=== PATIENT | female | born 1945 ===

== ENCOUNTER 2017-07-05 07:15 | Observation (INO) | payer MEDICARE ==
[2017-07-05] MEDS ORDERED: Propofol 10 mg/ml Inj (20 ML) ONE (09:38)
[2017-07-05] MEDS ORDERED: cefOXitin IV 1 gm in Dextrose 1 GM/50 ML BAG IVPB ONE (09:38)
[2017-07-05] MEDS ORDERED: Midazolam 2 MG/2 ML VIAL ONE (09:38)
[2017-07-05] MEDS ORDERED: Vasopressin 20 Units/ml Inj ONE (09:51)
[2017-07-05] MEDS ORDERED: Sodium Chloride 0.9% 60 ML IV ONE (09:53)
[2017-07-05] MEDS ORDERED: Clindamycin 2% Vaginal Cream(40 gm) ONE (10:25)
[2017-07-05] MEDS ORDERED: Rocuronium 10 mg/ml (5 ml) ONE (10:47)
[2017-07-05] MEDS ORDERED: Succinylcholine Chloride 20 mg/ml Syr (5 ml) IV ONE (10:50)
[2017-07-05] MEDS ORDERED: Neostigmine Methylsulfate 3mg/3ml Syringe IV ONE (11:42)
[2017-07-05] MEDS ORDERED: cefOXitin IV 1 gm in Dextrose 1 GM/50 ML BAG IVPB SCH (11:45)
--- NOTE | 2017-07-05 11:51 | PCM.SURG1 ---
Surgeon's Initial Post Op Note - Surgeon's Notes Surgeon: Dr. Daniel Angledozer Operator: Dr. Giron Type of Anesthesia: General Endo Pre-Operative Diagnosis: pelvic organ prolapse Operative Findings: Uterine prolapse, cystocele, rectocele Post-Operative Diagnosis: same Operation Performed: Vaginal hysterectomy, anterior/posterior repair, cystoscopy Specimen/Specimens Removed: Uterus, cervix Estimated Blood Loss: EBL {In ML}: 50 Blood Products Given: N/A Drains Used: No Drains Post-Op Condition: Good Date of Surgery/Procedure: 07/05/17 Time of Surgery/Procedure: 10:00
[2017-07-05] MEDS: HYDROmorphone 0.5 mg/0.5 ml ISec IVP PRN ×3 (11:55→12:29)
[2017-07-05] MEDS ORDERED: Sodium Chloride 0.9% 1,000 ML IV SCH (12:45)
[2017-07-05] MEDS: cefOXitin IV 1 gm in Dextrose 1 GM/50 ML BAG IVPB SCH (17:59)
[2017-07-05] MEDS ORDERED: Oxytocin 20 units in LR 2,000 ML IV ONE (18:53)
[2017-07-05] MEDS ORDERED: Oxytocin 10 Units/ml Inj ONE (18:54)
--- NOTE | 2017-07-06 01:56 | OP ---
PROCEDURE DATE: 07/05/2017 PREOPERATIVE DIAGNOSES: A 72-year-old female with uterine prolapse, cystocele grade 3, and rectocele grade 2. POSTOPERATIVE DIAGNOSIS: A 72-year-old female with uterine prolapse, cystocele grade 3, and rectocele grade 2. PROCEDURE: Vaginal hysterectomy as well as an anterior posterior repair and cystoscopy. SURGEON: Gely Daniel MD VETERIN[employer] MEDICINE TEACHER: Winter Giron MD TYPE OF ANESTHESIA: General endotracheal tubing. COMPLICATIONS: None. ESTIMATED BLOOD LOSS: 50 mL. URINE OUTPUT: 200 mL with clear urine at the end of the procedure. FLUIDS: 500 mL. DESCRIPTION OF PROCEDURE: Examination under anesthesia revealed that she had a small anteverted uterus which was uterine prolapse grade of 3. The uterus was approximately 7 x 6 cm, elongated in shape. The risk, benefit, indication, and alternatives of the procedure were reviewed with the patient and inform consent was obtained. The patient was informed that the risk factors including an infection, bleeding, damage to the surrounding organs and tissues, reoccurrence of cystocele, rectocele, stress incontinence and urge. Once all questions were answered, once the consent was obtained, she was then taken to the operating room, prepped and draped in normal sterile fashion, placed in a dorsal lithotomy position. A weighted speculum was placed into the vagina. The cervix was then grasped with a single-toothed tenaculum. The cervix was then injected with vasopressin and the cervix was circumferential, incised with the scalpel and the bladder dissected off the pubic vesicocervical fascia anterior with a sponge stick and Metzenbaum scissors. The anterior cul-de-sac was then entered sharply and the same procedure was then performed posteriorly and the posterior cul-de-sac was then entered sharply without any difficulty. At this point, the Naa clamps were then placed over the ureteral sacral ligament on either side, it was then transected, suture ligated with 3-0 Vicryl. Hemostasis was then assured. The caudal ligament was then clamped on both sides, transected and suture ligated in a similar fashion. The uterine arteries and the broad ligaments were then clearly clamped with Sherrie clamps, transected, and suture ligated on both sides. Excellent hemostasis was visualized. Both was then clamped with Sherrie clamps, transected, and uterus is delivered. These pedicles were then suture ligated with excellent hemostasis. The peritoneum was then closed with purse-string sutures of 0 Vicryl, the vaginal cuff angles were then closed with [id number] stitch of 0 Vicryl on both sides and transected to the ipsilateral corner and uterosacral ligaments. The remainder of the vaginal cuff was then enclosed with [id number] using 0 Vicryl . Once the vaginal cuff was then closed, attention was then turned to the cystocele repair which she basically have, which was grade 3, so vasopressin was infiltrated under the anterior vaginal mucosa midline and small incision was made in the vaginal mucosa and the Metzenbaum scissors was then used to dissect the mucosa of the cystocele and cut the vaginal mucosa in the midline. The cut edges were then clamped with a T-clamp. The bladder was dissected away along the lateral edges with a combination of sharp and blunt dissection, exposing the vesicovaginal space with series of 2-0 Vicryl interrupted sutures then placed subsequently along the lateral fold in a vesicovaginal space and brought together to the trunk to the bladder back while simultaneously bringing the lateral vaginal tissue together. The excessive vaginal mucosa was then trimmed and the vagina was then closed with running locked 0 Vicryl. The Holliday catheter was removed and a 70-degree scope was inserted into the bladder. The bladder was then intact and normal looking with no evidence of trauma or perforation, bilateral ureteral jets were then visualized . The bladder was then drained to the sheath of the cystoscopy and then the cystoscopy was removed. In a particular instance, attention was then turned to the posterior repair where diluted vasopressin was given under the posterior vaginal mucosa, midline, and into the peritoneal body. A triangular incision was then cut in the perineum. The posterior vaginal wall was then opened vertically and midline upto the apex of the rectal field, the cut edges were held separately laterally with series of T-clamps. The opened vaginal mucosa was dissected laterally with the combination of sharp and blunt dissection exposing the perirectal fascia. The perirectal fascia was then reapproximated with 2-0 Vicryl to draw the lateral folds together and pack the rectocele back to its normal anatomical place. Deep interrupted sutures of 0 Vicryl was then used to reapproximate the fibers of levator ani muscle. The excessive vaginal mucosa was then trimmed and the posterior vaginal wall was then closed and a running locked 0 Vicryl to the hymen tag. The superficial peritoneal muscles were then closed with unlocked 0 Vicryl and the peritoneal skin was then closed with running subcu 2-0 Vicryl. In that particular instance, it was then noted that rectal exams were repeated throughout the repair and at the end to ensure that they were no sutures penetrating the rectal tissue. Upon completion, all instruments were removed from the vagina. Instrument and lap counts were correct x2. Packing was then placed with the objection to remove it in 24 hours. The patient was then taken to recovery room in stable condition. Gely Daniel MD
[2017-07-06] MEDS ORDERED: Bisacodyl 5mg EC Tab PO ONE (01:57)
[2017-07-06] MEDS: cefOXitin IV 1 gm in Dextrose 1 GM/50 ML BAG IVPB SCH ×2 (02:11→09:43)
[2017-07-06 08:24] LABS: HEMOGLOBIN 10.9 g/dL (11.0-16.0); MEAN CELL VOLUME 84.4 fL (81.0-99.0); MEAN CORPUSCULAR HEMOGLOBIN 28.7 pg (27.0-31.0); MEAN PLATELET VOLUME 7.7 fL (7.2-11.7); RBC 3.81 Mil/uL (3.80-5.20); RED CELL DISTRIBUTION WIDTH 14.3 % (11.5-14.5); WHITE BLOOD COUNT 12.2 K/uL (4.8-10.8)
[2017-07-06 08:28] VITALS: TEMP 98
[2017-07-06 08:39] LABS: BLOOD UREA NITROGEN 18 mg/dL (7-17); CALCIUM 9.5 mg/dl (8.6-10.4); GFR AFRICAN-AMERICAN > 60; GFR NON-AFRICAN AMERICAN 55
[2017-07-06 09:20] VITALS: PULSE 82; RESP 18; O2SAT 98
[2017-07-06] MEDS ORDERED: Simethicone 80 mg Chewtab PO SCH (14:00)
[2017-07-06 17:34] VITALS: BP 128/76
== END 2017-07-06 17:30 | disposition home health service (06) ==
LOC: C.SDS 07:15 → C.9S 11:39 → C.4M 11:56
PROVIDERS: ADMIT Obstetrics & Gynecology; ATTEND Obstetrics & Gynecology
DX: N81.3 Complete uterovaginal prolapse (principal); I10 Essential (primary) hypertension; E78.5 Hyperlipidemia, unspecified
CPT/HCPCS: 36415; 57260; 58260; 80048; 85027; 86850; 86900; 88309; G0378; J0694; J1100; J1170; J1885; J2001; J2250; J2405; J2704; J2710; J3010